=== PATIENT | male | born 1970 | race Two or more races ===

== ENCOUNTER 2022-06-18 19:57 | Emergency (ER) | payer OTHER ==
[~2022-06-18] VITALS: Ht 172.7 cm; Wt 87.0 kg
[2022-06-19] MEDS ORDERED: IBUP800T27 PO (00:05)
[2022-06-19 00:15] VITALS: BP 131/97
== END 2022-06-19 00:16 | disposition home or self-care (01) ==
LOC: ER 20:03
DX: S76.012A Strain of muscle, fascia and tendon of left hip, initial encounter (principal); X58.XXXA Exposure to other specified factors, initial encounter; Y93.89 Activity, other specified; Y92.89 Other specified places as the place of occurrence of the external cause; Y99.8 Other external cause status